=== PATIENT | male | born 1990 | race Caucasian/White ===

== ENCOUNTER 2021-11-07 10:08 | Emergency (ER) | payer MEDICAID ==
[~2021-11-07] VITALS: Ht 175.3 cm; Wt 68.6 kg
[2021-11-07 10:18] VITALS: BP 156/94
== END 2021-11-07 14:53 | disposition left against medical advice (07) ==
LOC: ER 10:08
DX: Z53.21 Procedure and treatment not carried out due to patient leaving prior to being seen by health care provider (principal); I49.9 Cardiac arrhythmia, unspecified
CPT/HCPCS: 82962; 93005